=== PATIENT | male | born 1955 | race Two or more races ===

== ENCOUNTER 2018-08-19 11:48 | Inpatient (IN) | payer OTHER ==
[~2018-08-19] VITALS: Ht 167.6 cm; Wt 81.6 kg
--- NOTE | 2018-08-19 11:57 | NUR ---
ED Nurse Note: Pt JUSTICE from [facility] due to fever 103.3F @ 1000 at facility. Addendum: 08/19/18 at 1212 by [facility] ED Nurse Note: Pt JUSTICE from [facility], sent by Dr. Boucher due to fever 103.3F @ 1000 at facility. 103.0F rectally at [facility] checked by RN. Pt also c/o chronic abdominal pain 10/19 jordon. AOx4, VSS. Will cont to monitor.
[2018-08-19 12:08] VITALS: BP 125/79
[2018-08-19] MEDS ORDERED: Cefepime HCl 2 GM in NS 110 ML IV SCH (13:30)
[2018-08-19] MEDS ORDERED: HYDROcodone/Acetamin 5/325 tab ORAL ONE ×2 (14:00→14:30)
[2018-08-19 14:06] LABS: APPEARANCE,URINE CLEAR; BILIRUBIN, URINE 1+ (NEGATIVE); GLUCOSE, URINE (UA) NEGATIVE (NEGATIVE); KETONES,URINE 3+ (NEGATIVE); LEUKOCYTE ESTERASE ,URINE 2+ (NEGATIVE); NITRITE,URINE NEGATIVE (NEGATIVE); PH,URINE 7 (4.5-8.0); PROTEIN,URINE 1+ (NEGATIVE); UROBILINOGEN,URINE 8 MG/DL (0.0-1.0)
[2018-08-19 14:15] LABS: BASOPHILS % (AUTO) 0.3 % (0.0-2.0); EOSINOPHILS % (AUTO) 0.1 % (0.0-3.0); HEMATOCRIT 51.2 % (42.0-52.0); HEMOGLOBIN 17.3 G/DL (14.2-18.0); LYMPHOCYTES % (AUTO) 13.7 % (20.0-45.0); MEAN CORPUSCULAR VOLUME 91 FL (80-99); MONOCYTES % (AUTO) 6.4 % (1.0-10.0); NEUTROPHILS % (AUTO) 79.6 % (45.0-75.0); PLATELET COUNT 339 K/UL (150-450); RED BLOOD COUNT 5.64 M/UL (4.70-6.10); RED CELL DISTRIBUTION WIDTH 12.7 % (11.6-14.8); WHITE BLOOD COUNT 9.7 K/UL (4.8-10.8)
[2018-08-19 14:18] LABS: COLOR,URINE YELLOW
[2018-08-19 14:27] LABS: ANION GAP 11 mmol/L (5-15); BLOOD UREA NITROGEN 10 mg/dL (7-18); CALCIUM 9.8 MG/DL (8.5-10.1); CARBON DIOXIDE 25 MMOL/L (21-32); CHLORIDE 98 MMOL/L (98-107); CREATININE 0.7 MG/DL (0.55-1.30); POTASSIUM 4.1 MMOL/L (3.5-5.1); SODIUM 134 MMOL/L (136-145)
[2018-08-19 14:40] LABS: ALANINE AMINOTRANSFERASE 47 U/L (12-78); ALBUMIN/GLOBULIN RATIO 0.8 (1.0-2.7); ALKALINE PHOSPHATASE 50 U/L (46-116); ASPARTATE AMINO TRANSFERASE 39 U/L (15-37); BILIRUBIN,TOTAL 1.4 MG/DL (0.2-1.0); CKMB 1.6 NG/ML (0.0-3.6); CREATINE KINASE 866 U/L (26-308)
[2018-08-19 14:42] LABS: BILIRUBIN,DIRECT 0.5 MG/DL (0.0-0.3)
[2018-08-19] MEDS ORDERED: Albuterol/Ipratropium 3ml neb HHN PRN (15:45)
[2018-08-19] MEDS ORDERED: Nitroglycerin Subl 0.4mg tab SL PRN (15:45)
[2018-08-19] MEDS ORDERED: Miralax 17gm pkt ORAL PRN (15:45)
--- NOTE | 2018-08-19 15:48 | NUR ---
ED Nurse Note: provided sandwich and juice for the patient. textile technologist to help patient eat. Dr. Jossue jesus with the pt eating.
[2018-08-19] MEDS ORDERED: NORCO 5-325 TA1 EACH ORAL ×2 (15:58→18:12)
[2018-08-19] MEDS ORDERED: METFORMIN HCL1000 M1 ORAL (15:58)
[2018-08-19] MEDS ORDERED: DEPAKOTE125 MG PO (15:58)
[2018-08-19] MEDS ORDERED: RISPERDAL0.5 MG ORAL (15:58)
[2018-08-19] MEDS ORDERED: KLONOPIN2 MG PO (15:58)
[2018-08-19 18:10] VITALS: BP 100/60
--- NOTE | 2018-08-19 18:10 | NUR ---
ED Nurse Note: provided another sandwich for the patient, patient is resting comfortably in bed
[2018-08-19] MEDS ORDERED: MILK OF MA400 MG/51 ORAL (18:12)
[2018-08-19] MEDS ORDERED: KLONOPIN1 MG ORAL (18:12)
[2018-08-19] MEDS ORDERED: FISH OIL 1,0001 EAC1 ORAL (18:12)
[2018-08-19] MEDS ORDERED: MIRALAX17 G2 ORAL (18:12)
[2018-08-19] MEDS ORDERED: DEPAKOTE250 MG PO (18:12)
[2018-08-19] MEDS ORDERED: MULTIVITAMINS1 EAC2 ORAL (18:12)
[2018-08-19] MEDS ORDERED: ACETAMINOPHEN325 M1 ORAL (18:12)
[2018-08-19] MEDS ORDERED: SENNO8.6 MG ORAL (18:12)
[2018-08-19] MEDS ORDERED: BACLOFEN10 MG ORAL (18:16)
[2018-08-19] MEDS ORDERED: LANTUS SOL100 UNIT/1 SUBQ (18:16)
[2018-08-19] MEDS ORDERED: LOPID600 MG ORAL (18:16)
[2018-08-19] MEDS ORDERED: LACTULOSE20 GM/301 ORAL (18:17)
[2018-08-19] MEDS ORDERED: DOCUSATE SODIU100 MG ORAL (18:17)
--- NOTE | 2018-08-19 19:24 | NUR ---
HAND-OFF: Report given to Argelia beth.
[2018-08-19 19:45] VITALS: BP 98/59
[2018-08-19 20:06] VITALS: BP 102/64
--- NOTE | 2018-08-19 20:06 | NUR ---
ER Nurse Note: Report given to RADHA Lorenzo in tele for continuity of care. Pt a&ox4, VSS, no signs of distress. All belongings taken with pt.
[2018-08-19 20:35] VITALS: BP 144/80
--- NOTE | 2018-08-19 20:35 | NUR ---
NURSE NOTES: Pt arrived to floor accompanied by RN and haulage boss, connected to cardiac care unit nurse. Pt A/Ox4, cardiac care unit nurse shows SR. Currently on 2L NC, O2 saturation @ 100 %. Showing no signs of acute respiratory or cardiac distress. Pt has a R thumb 24g and a R forearm 22g peripheral IV. Both patent and asymptomatic. Pt uses urinal at beside. No skin breakdown noted aside from old scarring around sacral area. Bed in lowest position, bed alarms placed. Will continue to monitor and with patients plan of care.
[2018-08-19] MEDS: Morphine Sulfate 2mg/ml Inj(IV/IM USE ONLY) IVP PRN (21:16)
[2018-08-19] MEDS: Heparin 5000 units/ml inj SUBQ SCH (21:26)
[2018-08-19] MEDS: Cefepime HCl 2 GM in D5W 110 ML IV SCH (21:27)
[2018-08-19] MEDS: Vancomycin 1.25gm Premix IVPB SCH (22:39)
[2018-08-20] VITALS: BP 122/70
[2018-08-20] MEDS ORDERED: Vancomycin 1 GM in D5W 275 ML IV SCH (00:30)
[2018-08-20 04:00] VITALS: BP 105/60
[2018-08-20] MEDS: Morphine Sulfate 2mg/ml Inj(IV/IM USE ONLY) IVP PRN ×3 (05:43→18:18)
[2018-08-20 06:09] LABS: EOSINOPHILS % (AUTO) 0.2 % (0.0-3.0); HEMATOCRIT 36.7 % (42.0-52.0); HEMOGLOBIN 12.7 G/DL (14.2-18.0); LYMPHOCYTES % (AUTO) 20.8 % (20.0-45.0); MEAN CORPUSCULAR VOLUME 90 FL (80-99); MONOCYTES % (AUTO) 9.8 % (1.0-10.0); NEUTROPHILS % (AUTO) 68.2 % (45.0-75.0); PLATELET COUNT 293 K/UL (150-450); RED BLOOD COUNT 4.07 M/UL (4.70-6.10); RED CELL DISTRIBUTION WIDTH 12.7 % (11.6-14.8); WHITE BLOOD COUNT 6.3 K/UL (4.8-10.8)
[2018-08-20 06:50] LABS: ALANINE AMINOTRANSFERASE 36 U/L (12-78); ALBUMIN 2.8 G/DL (3.4-5.0); ALBUMIN/GLOBULIN RATIO 0.8 (1.0-2.7); ALKALINE PHOSPHATASE 35 U/L (46-116); ANION GAP 8 mmol/L (5-15); ASPARTATE AMINO TRANSFERASE 28 U/L (15-37); BLOOD UREA NITROGEN 11 mg/dL (7-18); CALCIUM 8.5 MG/DL (8.5-10.1); CARBON DIOXIDE 27 MMOL/L (21-32); CHLORIDE 101 MMOL/L (98-107); CREATININE 0.5 MG/DL (0.55-1.30); POTASSIUM 3.5 MMOL/L (3.5-5.1); SODIUM 136 MMOL/L (136-145)
[2018-08-20 08:00] VITALS: BP 106/61
--- NOTE | 2018-08-20 08:00 | NUR ---
NURSE NOTES: received pt in the bed, awake, alert, oriented, vital signs stable, no co pain, no SOB, skin warm and dry to touch, intact, pt NPO, use urinal, yellow urine, Heplock on RT forearm, patten, bed in low position, call light within reach.
[2018-08-20] MEDS: Cefepime HCl 2 GM in D5W 110 ML IV SCH ×2 (08:25→20:46)
[2018-08-20] MEDS: Heparin 5000 units/ml inj SUBQ SCH ×2 (08:27→20:48)
[2018-08-20] MEDS: Vancomycin 1.25gm Premix IVPB SCH ×2 (10:23→22:07)
--- NOTE | 2018-08-20 10:37 | NUR ---
RENAL DIALYSIS TECHNICIANCOMPLIANCE NURSE 63 Y/O MALE BIBA FROM [facility] TO [facility] ER CC:FEVER SI:SEPSIS, QUADRIPLEGIA VS: BP 158/110, P 90, T 99.8, RR 15, SpO2 98 on 3.0 NC Na 134, Total Bilirubin 1.4, CR 0.5, Urine Protein 1+, Urine WBC 5-10 IS:Metronidazole IV Cefepime IV Ibuprofen PO Hydrocodone Bitart PO Morphine Sulfate IVP SDU STATUS DC TO [facility]
--- NOTE | 2018-08-20 11:05 | NUR ---
*-* INSURANCE *-* ALL CLINICALS AND REVIEWS FAXED TO: DASHA/EHSAN NO JAVA SWING DEVELOPER ASSIGNED AT THIS TIME PLEASE FAX THE REVIEW/CLINICAL. P- [phone] F- [phone]
--- NOTE | 2018-08-20 11:33 | Diagnostic Imaging Report ---
Indication: Shortness of breath Technique: One view of the chest Comparison: none Findings: Patient is rotated to the left. The lungs and pleural spaces are clear. The heart size is upper limits of normal Impression: No acute process
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
--- NOTE | 2018-08-20 11:44 | Diagnostic Imaging Report ---
Indication: Shortness of breath Technique: One view of the chest Comparison: 08/19/2017 Findings: Nodular opacity projects in the left lung base, not evident previously, likely a small focus of atelectasis. Linear atelectasis projects at the right lung base. The lungs and pleural spaces otherwise clear. The heart is borderline enlarged. Impression: Basilar atelectatic changes Borderline cardiomegaly No acute process
[2018-08-20] MEDS ORDERED: Dextrose 50% 25ml Syringe IV PRN (11:45)
[2018-08-20 12:00] VITALS: BP 113/65
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
[2018-08-20 16:00] VITALS: BP 109/68
--- NOTE | 2018-08-20 16:48 | Cardiac Electrophysiology PN ---
Subjective Subjective [id number] Objective Last 24 Hour Vital Signs Date Time Temp Pulse Resp B/P (MAP) Pulse Ox O2 Delivery O2 Flow Rate FiO2 08/20/18 15:17 98.2 08/20/18 12:16 98.2 08/20/18 12:00 98.0 56 22 113/65 (81) 98 08/20/18 12:00 52 08/20/18 09:00 Nasal Cannula 2.0 08/20/18 08:00 98.2 61 22 106/61 (76) 99 08/20/18 08:00 60 08/20/18 04:00 67 08/20/18 04:00 98.9 67 22 105/60 (75) 99 08/20/18 00:00 64 08/20/18 00:00 99.5 60 16 122/70 (87) 100 08/19/18 21:48 Nasal Cannula 2.0 08/19/18 21:46 Nasal Cannula 2.0 08/19/18 20:35 98.2 76 16 144/80 (101) 100 08/19/18 20:06 98.6 89 17 102/64 98 Nasal Cannula 2.0 08/19/18 20:06 98.6 72 17 102/64 98 Nasal Cannula 2.0 08/19/18 19:45 98.7 76 17 98/59 99 Nasal Cannula 2.0 08/19/18 18:10 99.3 72 19 100/60 98 Nasal Cannula 2.0 Intake and Output 08/19/18 08/20/18 19:00 07:00 Intake Total 1435.000 ml Output Total 200 ml Balance 1235.000 ml Intake IV Total 1435.000 ml Output Urine Total 200 ml Laboratory Tests Test 08/20/18 05:10 White Blood Count 6.3 K/UL (4.8-10.8) Red Blood Count 4.07 M/UL (4.70-6.10) L Hemoglobin 12.7 G/DL (14.2-18.0) L Hematocrit 36.7 % (42.0-52.0) L Mean Corpuscular Volume 90 FL (80-99) Mean Corpuscular Hemoglobin 31.1 PG (27.0-31.0) H Mean Corpuscular Hemoglobin Concent 34.5 G/DL (32.0-36.0) Red Cell Distribution Width 12.7 % (11.6-14.8) Platelet Count 293 K/UL (150-450) Mean Platelet Volume 4.8 FL (6.5-10.1) L Neutrophils (%) (Auto) 68.2 % (45.0-75.0) Lymphocytes (%) (Auto) 20.8 % (20.0-45.0) Monocytes (%) (Auto) 9.8 % (1.0-10.0) Eosinophils (%) (Auto) 0.2 % (0.0-3.0) Basophils (%) (Auto) 1.0 % (0.0-2.0) Sodium Level 136 MMOL/L (136-145) Potassium Level 3.5 MMOL/L (3.5-5.1) Chloride Level 101 MMOL/L (98-107) Carbon Dioxide Level 27 MMOL/L (21-32) Anion Gap 8 mmol/L (5-15) Blood Urea Nitrogen 11 mg/dL (7-18) Creatinine 0.5 MG/DL (0.55-1.30) L Estimat Glomerular Filtration Rate > 60 mL/min (>60) Glucose Level 110 MG/DL (74-106) H Calcium Level 8.5 MG/DL (8.5-10.1) Total Bilirubin 1.0 MG/DL (0.2-1.0) Aspartate Amino Transf (AST/SGOT) 28 U/L (15-37) Alanine Aminotransferase (ALT/SGPT) 36 U/L (12-78) Alkaline Phosphatase 35 U/L (46-116) L Total Protein 6.5 G/DL (6.4-8.2) Albumin 2.8 G/DL (3.4-5.0) L Globulin 3.7 g/dL Albumin/Globulin Ratio 0.8 (1.0-2.7) L Microbiology Date/Time Source Procedure Growth Status 08/19/18 13:42 Nasal Nares Influenza Types A,B Antigen ([facility]) - Final Complete Sky Post MD Aug 20, 2018 16:48
--- NOTE | 2018-08-20 17:00 | NUR ---
NURSE NOTES: HR down to 48, pt not co chest pain, dr. Post saw pt, continue monitoring.
[2018-08-20] MEDS: NovoLOG Insulin Flexpen SUBQ SCH ×2 (17:52→20:47)
--- NOTE | 2018-08-20 18:47 | History and Physical Report ---
DATE OF ADMISSION: 08/19/2018 DATE AND TIME SEEN: 08/20/2018, 12 noon. CONSULTANTS: 1. Josesito Demarco M.D. 2. Anshul Nassar M.D. 3. Sky Post M.D. 4. Clarke Lindquist M.D. 5. Amarilis Rowland M.D. CHIEF COMPLAINT: Fever, UTI, quadriplegia, bipolar, elevated troponin. BRIEF HISTORY: This is a 63-year-old male from [facility], presented with increased fever, weakness, brought to [facility] diagnosed with fever, UTI, elevated troponin, and admitted to [facility] for further care. Currently, calm in bed, O2 NC, slight short of breath. No complaint. REVIEW OF SYSTEMS: No chest pain. Slight short of breath. No nausea, vomiting, diarrhea. PAST MEDICAL HISTORY: Includes quadriplegia, diabetes. PAST SURGICAL HISTORY: Spinal cord surgery. ALLERGIES: Denies. SOCIAL HISTORY: No smoking. No alcohol. No intravenous drug abuse. Positive marijuana. PHYSICAL EXAMINATION: GENERAL: Calm in bed, oriented x3, in no acute distress. VITAL SIGNS: Temperature is 98 degrees, pulse 61, respirations 22, blood pressure 106/61. CARDIOVASCULAR: No murmurs. LUNGS: Distant and clear. ABDOMEN: Bowel sounds positive. Nontender. Nondistended. EXTREMITIES: No cyanosis or edema. NEUROLOGIC: Flaccid below waist. Moves right hand. Left hand slightly weak. LABORATORY AND DIAGNOSTIC DATA: Labs at this time show hemoglobin and hematocrit 12/36, otherwise CBC is normal. BMP shows creatinine 0.5, glucose 110. ALT 35. Troponin 0.105. Albumin 2.8. Urinalysis show 2+ leukocyte esterase. MEDICATIONS: Include baclofen, clonazepam, insulin, divalproex, vancomycin, cefepime, heparin, albuterol, Tylenol morphine, Zofran. ASSESSMENT: 1. Fever. 2. UTI. 3. Quadriplegia. 4. Elevated troponin. 5. Bipolar. 6. Diabetes. 7. Malnutrition. PLAN: 1. Antibiotic per Infectious Disease. 2. Blood pressure, blood sugar, pain control. 3. Troponin q.8 h. x3. 4. EKG in a.m. 5. Cardiology followup. 6. Dietary eval. 7. PT eval. 8. CBC, BMP in the morning. Salty Boucher D.O. DR: TONY JOB#: [id number] CC:
--- NOTE | 2018-08-20 19:13 | NUR ---
HAND-OFF: Report given to CECE GARCIA.
--- NOTE | 2018-08-20 19:14 | NUR ---
NURSE NOTES: Report received from Gricel Tolliver RN. Pt A/Ox4, shelter monitor shows SR. Currently on 2L NC, O2 saturation @ 100 %. Showing no signs of acute respiratory or cardiac distress. Pt has a R forearm 22g peripheral IV. Both patent and asymptomatic. Pt uses urinal at beside. No skin breakdown noted aside from old scarring around sacral area. Bed in lowest position, bed alarms placed. Will continue to monitor and with patients plan of care. Awaiting to transfer pt to telemetry unit. Bed unavailable at the moment.
[2018-08-20 20:00] VITALS: BP 100/60
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
[2018-08-21] VITALS: BP 100/60
[2018-08-21 04:00] VITALS: BP 107/62
[2018-08-21 04:45] LABS: BASOPHILS % (AUTO) 0.7 % (0.0-2.0); HEMATOCRIT 36.4 % (42.0-52.0); HEMOGLOBIN 12.6 G/DL (14.2-18.0); LYMPHOCYTES % (AUTO) 33.6 % (20.0-45.0); MEAN CORPUSCULAR VOLUME 90 FL (80-99); NEUTROPHILS % (AUTO) 48.7 % (45.0-75.0); PLATELET COUNT 293 K/UL (150-450); RED BLOOD COUNT 4.02 M/UL (4.70-6.10); RED CELL DISTRIBUTION WIDTH 12.6 % (11.6-14.8); WHITE BLOOD COUNT 4.1 K/UL (4.8-10.8)
[2018-08-21 05:13] LABS: ANION GAP 12 mmol/L (5-15); BLOOD UREA NITROGEN 10 mg/dL (7-18); CARBON DIOXIDE 26 MMOL/L (21-32); CHLORIDE 104 MMOL/L (98-107); CREATININE 0.4 MG/DL (0.55-1.30); POTASSIUM 3.8 MMOL/L (3.5-5.1); SODIUM 141 MMOL/L (136-145)
[2018-08-21] MEDS: NovoLOG Insulin Flexpen SUBQ SCH ×4 (05:27→20:36)
[2018-08-21 08:00] VITALS: BP 110/72
--- NOTE | 2018-08-21 08:00 | NUR ---
NURSE NOTES: received pt in the bed, awake, alert, oriented, vital signs stable, no SOB, no co pain, skin warm and dry to touch, paraplegic, use urinal, yellow urine, SB, HR down to 47, dr. Post aware, 2D echo done, bed in low position, call light within reach.
[2018-08-21] MEDS: Cefepime HCl 2 GM in D5W 110 ML IV SCH ×2 (09:09→20:35)
[2018-08-21] MEDS: Heparin 5000 units/ml inj SUBQ SCH ×2 (09:09→20:37)
[2018-08-21] MEDS: Morphine Sulfate 2mg/ml Inj(IV/IM USE ONLY) IVP PRN ×3 (09:10→23:15)
--- NOTE | 2018-08-21 09:25 | Pulmonology Progress Note ---
Assessment/Plan Problems: (1) Sepsis (2) Diabetes mellitus (3) Schizoaffective disorder, bipolar type (4) Major depression (5) Paraplegia Assessment/Plan afebrile now BC negative so far heart rate of 50's get echo review telemetry dvt prophylaxis pt is doing better. Subjective ROS Limited/Unobtainable: No Constitutional: Reports: no symptoms HEENT: Repors: no symptoms Respiratory: Reports: no symptoms Allergies: Coded Allergies: No Known Allergies (Unverified , 08/19/18) Objective Last 24 Hour Vital Signs Date Time Temp Pulse Resp B/P (MAP) Pulse Ox O2 Delivery O2 Flow Rate FiO2 08/21/18 04:00 50 08/21/18 04:00 98.0 53 20 107/62 (77) 98 08/21/18 02:41 98.0 08/21/18 00:00 52 08/21/18 00:00 97.8 50 20 100/60 (73) 100 08/20/18 20:00 97.5 60 20 100/60 (73) 100 08/20/18 20:00 64 08/20/18 20:00 Nasal Cannula 2.0 08/20/18 18:48 97.9 08/20/18 16:00 97.9 61 21 109/68 (82) 99 08/20/18 16:00 52 08/20/18 12:00 98.0 56 22 113/65 (81) 98 08/20/18 12:00 52 Intake and Output 08/20/18 08/21/18 19:00 07:00 Intake Total 880.000 ml 465.000 ml Output Total 650 ml 250 ml Balance 230.000 ml 215.000 ml Intake Oral 200 ml 80 ml IV Total 680.000 ml 385.000 ml Output Urine Total 650 ml 250 ml General Appearance: WD/WN HEENT: normocephalic, atraumatic Respiratory/Chest: chest wall non-tender, lungs clear Cardiovascular: normal peripheral pulses, normal rate, regular rhythm Abdomen: normal bowel sounds, no organomegaly Extremities: no cyanosis, no clubbing Skin: no lesions Microbiology Date/Time Source Procedure Growth Status 08/19/18 14:07 Blood Blood Culture - Preliminary NO GROWTH AFTER 24 HOURS Resulted 08/19/18 14:01 Blood Blood Culture - Preliminary NO GROWTH AFTER 24 HOURS Resulted 08/19/18 13:42 Nasal Nares Influenza Types A,B Antigen (YURY) - Final Complete Laboratory Tests 08/21/18 03:40: White Blood Count 4.1L, Red Blood Count 4.02L, Hemoglobin 12.6L, Hematocrit 36.4L, Mean Corpuscular Volume 90, Mean Corpuscular Hemoglobin 31.2H, Mean Corpuscular Hemoglobin Concent 34.5, Red Cell Distribution Width 12.6, Platelet Count 293, Mean Platelet Volume 4.9L, Neutrophils (%) (Auto) 48.7, Lymphocytes ( %) (Auto) 33.6, Monocytes (%) (Auto) 15.0H, Eosinophils (%) (Auto) 2.0, Basophils (%) (Auto) 0.7, Sodium Level 141, Potassium Level 3.8, Chloride Level 104, Carbon Dioxide Level 26, Anion Gap 12, Blood Urea Nitrogen 10, Creatinine 0.4L, Estimat Glomerular Filtration Rate > 60, Glucose Level 119H, Calcium Level 9.0, Troponin I 0.013, Pro-B-Type Natriuretic Peptide 430H Current Medications Medications (Trade) Dose Ordered Sig/Alexander Route PRN Reason Start Time Stop Time Status Last Admin Dose Admin Acetaminophen (Tylenol) 650 mg Q4H PRN ORAL fever 08/19/18 15:45 09/18/18 15:44 08/21/18 02:11 Albuterol/ Ipratropium (Albuterol/ Ipratropium) 3 ml Q4H PRN HHN Shortness of Breath 08/19/18 15:45 08/24/18 15:44 Baclofen (Lioresal) 10 mg Q12HR ORAL 08/20/18 21:00 09/19/18 20:59 08/21/18 09:09 Cefepime HCl 2 gm/ Dextrose 110 ml @ 220 mls/hr EVERY 12 HOURS IV 08/19/18 21:00 08/26/18 20:59 08/21/18 09:09 Clonazepam (KlonoPIN) 1 mg Q12HR ORAL 08/20/18 18:00 08/27/18 17:59 08/21/18 09:10 Dextrose (Dextrose 50%) 25 ml Q30M PRN IV Hypoglycemia 08/20/18 11:45 09/19/18 11:41 Dextrose (Dextrose 50%) 50 ml Q30M PRN IV hypoglycemia 08/20/18 11:45 09/19/18 11:44 Divalproex Sodium (Depakote) 250 mg DAILY ORAL 08/20/18 14:00 09/19/18 13:59 08/21/18 09:10 Heparin Sodium (Porcine) (Heparin 5000 units/ml) 5,000 units EVERY 12 HOURS SUBQ 08/19/18 21:00 09/18/18 20:59 08/21/18 09:09 Insulin Aspart (NovoLOG) BEFORE MEALS AND HS SUBQ 08/20/18 16:30 09/19/18 16:29 08/21/18 05:27 Morphine Sulfate (Morphine Sulfate) 2 mg Q4H PRN IVP Moderate Pain (Pain Scale 4-6) 08/19/18 15:45 08/26/18 15:44 08/21/18 09:10 Nitroglycerin (Ntg) 0.4 mg Q5M PRN SL Prn Chest Pain 08/19/18 15:45 09/18/18 15:44 Ondansetron HCl (Zofran) 4 mg Q6H PRN IVP Nausea & Vomiting 08/19/18 15:45 09/18/18 15:44 Polyethylene Glycol (Miralax) 17 gm DAILYPRN PRN ORAL Constipation 08/19/18 15:45 09/18/18 15:44 Temazepam (Restoril) 15 mg HSPRN PRN ORAL Insomnia 08/19/18 15:45 08/26/18 15:44 Vancomycin HCl (Vanco rx to dose) 1 ea DAILY PRN MISC PER RX PROTOCOL 08/19/18 20:15 09/18/18 20:14 Vancomycin HCl/ Dextrose 275 ml @ 183.333 mls/hr Q12HR@1000,2200 IVPB 08/19/18 22:00 08/24/18 21:59 08/20/18 22:07 Josesito Demarco MD Aug 21, 2018 09:25
[2018-08-21] MEDS: Vancomycin 1.25gm Premix IVPB SCH ×2 (10:40→23:04)
--- NOTE | 2018-08-21 11:06 | NUR ---
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
[2018-08-21 12:00] VITALS: BP 103/44
--- NOTE | 2018-08-21 14:11 | NUR ---
NURSE NOTES: no any distress noted, no co pain, repositioned, continue monitoring.
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
--- NOTE | 2018-08-21 14:55 | NUR ---
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 P- [phone] F- [phone]
--- NOTE | 2018-08-21 15:40 | Cardiac Electrophysiology PN ---
Assessment/Plan Assessment/Plan 1. Troponin leak. Repeat troponin is negative. EKG showed sinus rhythm with right bundle-branch block. Echocardiogram EF 80%. The patient does not have any chest pain. 2. Fever of 103 and sepsis. The patient is on IV antibiotic. 3. History of cervical spine injury and quadriparesis. 4. Rhabdomyolysis with CK of more than 800. DAMIÁN Gilmore Subjective Subjective No events in NAD Objective Last 24 Hour Vital Signs Date Time Temp Pulse Resp B/P (MAP) Pulse Ox O2 Delivery O2 Flow Rate FiO2 08/21/18 12:00 97.5 64 21 103/44 (63) 97 08/21/18 12:00 64 08/21/18 09:40 98.0 08/21/18 09:00 Nasal Cannula 2.0 08/21/18 08:00 98.0 57 21 110/72 (85) 98 08/21/18 08:00 56 08/21/18 04:00 50 08/21/18 04:00 98.0 53 20 107/62 (77) 98 08/21/18 02:41 98.0 08/21/18 00:00 52 08/21/18 00:00 97.8 50 20 100/60 (73) 100 08/20/18 20:00 97.5 60 20 100/60 (73) 100 08/20/18 20:00 64 08/20/18 20:00 Nasal Cannula 2.0 08/20/18 16:00 97.9 61 21 109/68 (82) 99 08/20/18 16:00 52 Intake and Output 08/20/18 08/21/18 19:00 07:00 Intake Total 880.000 ml 465.000 ml Output Total 650 ml 250 ml Balance 230.000 ml 215.000 ml Intake Oral 200 ml 80 ml IV Total 680.000 ml 385.000 ml Output Urine Total 650 ml 250 ml Laboratory Tests Test 08/21/18 03:40 08/21/18 09:00 White Blood Count 4.1 K/UL (4.8-10.8) L Red Blood Count 4.02 M/UL (4.70-6.10) L Hemoglobin 12.6 G/DL (14.2-18.0) L Hematocrit 36.4 % (42.0-52.0) L Mean Corpuscular Volume 90 FL (80-99) Mean Corpuscular Hemoglobin 31.2 PG (27.0-31.0) H Mean Corpuscular Hemoglobin Concent 34.5 G/DL (32.0-36.0) Red Cell Distribution Width 12.6 % (11.6-14.8) Platelet Count 293 K/UL (150-450) Mean Platelet Volume 4.9 FL (6.5-10.1) L Neutrophils (%) (Auto) 48.7 % (45.0-75.0) Lymphocytes (%) (Auto) 33.6 % (20.0-45.0) Monocytes (%) (Auto) 15.0 % (1.0-10.0) H Eosinophils (%) (Auto) 2.0 % (0.0-3.0) Basophils (%) (Auto) 0.7 % (0.0-2.0) Sodium Level 141 MMOL/L (136-145) Potassium Level 3.8 MMOL/L (3.5-5.1) Chloride Level 104 MMOL/L (98-107) Carbon Dioxide Level 26 MMOL/L (21-32) Anion Gap 12 mmol/L (5-15) Blood Urea Nitrogen 10 mg/dL (7-18) Creatinine 0.4 MG/DL (0.55-1.30) L Estimat Glomerular Filtration Rate > 60 mL/min (>60) Glucose Level 119 MG/DL (74-106) H Calcium Level 9.0 MG/DL (8.5-10.1) Troponin I 0.013 ng/mL (0.000-0.056) Pro-B-Type Natriuretic Peptide 430 pg/mL (0-125) H Vancomycin Level Trough 12.9 ug/mL (5.0-12.0) H Microbiology Date/Time Source Procedure Growth Status 08/19/18 14:07 Blood Blood Culture - Preliminary NO GROWTH AFTER 24 HOURS Resulted 08/19/18 14:01 Blood Blood Culture - Preliminary NO GROWTH AFTER 24 HOURS Resulted 08/19/18 13:42 Nasal Nares Influenza Types A,B Antigen (YURY) - Final Complete Objective HEAD AND NECK: No JVD. LUNGS: Clear. CARDIOVASCULAR: Regular S1 and S2 with no gallop or murmur. ABDOMEN: Soft and nontender. EXTREMITIES: No pitting edema, however, contracted. Sky Post MD Aug 21, 2018 15:40
[2018-08-21 16:00] VITALS: BP 135/69
[2018-08-21] MEDS ORDERED: Tubing IV Secondary IV ONE (16:03)
[2018-08-21] MEDS ORDERED: NS 275ml ONE (16:03)
[2018-08-21] MEDS ORDERED: 1/2 NS 1000ml IV ONE (16:03)
--- NOTE | 2018-08-21 16:17 | General Progress Note ---
Assessment/Plan Problem List: (1) UTI (urinary tract infection) ICD Codes: N39.0 - Urinary tract infection, site not specified SNOMED: 98852837 (2) Paraplegia ICD Codes: G82.20 - Paraplegia, unspecified SNOMED: 95676395 (3) Sepsis ICD Codes: A41.9 - Sepsis, unspecified organism SNOMED: 37530861 (4) Fever ICD Codes: R50.9 - Fever, unspecified SNOMED: 368647989 (5) Diabetes mellitus ICD Codes: E11.9 - Type 2 diabetes mellitus without complications SNOMED: 51591836 Status: unchanged Assessment/Plan pt diet abx cbc bmp am Subjective Constitutional: Reports: weakness Allergies: Coded Allergies: No Known Allergies (Unverified , 08/19/18) All Systems: reviewed and negative except above Subjective sleepy in bed calm Objective Last 24 Hour Vital Signs Date Time Temp Pulse Resp B/P (MAP) Pulse Ox O2 Delivery O2 Flow Rate FiO2 08/21/18 12:00 97.5 64 21 103/44 (63) 97 08/21/18 12:00 64 08/21/18 09:40 98.0 08/21/18 09:00 Nasal Cannula 2.0 08/21/18 08:00 98.0 57 21 110/72 (85) 98 08/21/18 08:00 56 08/21/18 04:00 50 08/21/18 04:00 98.0 53 20 107/62 (77) 98 08/21/18 02:41 98.0 08/21/18 00:00 52 08/21/18 00:00 97.8 50 20 100/60 (73) 100 08/20/18 20:00 97.5 60 20 100/60 (73) 100 08/20/18 20:00 64 08/20/18 20:00 Nasal Cannula 2.0 Intake and Output 08/20/18 08/21/18 19:00 07:00 Intake Total 880.000 ml 465.000 ml Output Total 650 ml 250 ml Balance 230.000 ml 215.000 ml Intake Oral 200 ml 80 ml IV Total 680.000 ml 385.000 ml Output Urine Total 650 ml 250 ml Laboratory Tests 08/21/18 03:40: White Blood Count 4.1L, Red Blood Count 4.02L, Hemoglobin 12.6L, Hematocrit 36.4L, Mean Corpuscular Volume 90, Mean Corpuscular Hemoglobin 31.2H, Mean Corpuscular Hemoglobin Concent 34.5, Red Cell Distribution Width 12.6, Platelet Count 293, Mean Platelet Volume 4.9L, Neutrophils (%) (Auto) 48.7, Lymphocytes ( %) (Auto) 33.6, Monocytes (%) (Auto) 15.0H, Eosinophils (%) (Auto) 2.0, Basophils (%) (Auto) 0.7, Sodium Level 141, Potassium Level 3.8, Chloride Level 104, Carbon Dioxide Level 26, Anion Gap 12, Blood Urea Nitrogen 10, Creatinine 0.4L, Estimat Glomerular Filtration Rate > 60, Glucose Level 119H, Calcium Level 9.0, Troponin I 0.013, Pro-B-Type Natriuretic Peptide 430H 08/21/18 09:00: Vancomycin Level Trough 12.9H Height (Feet): 5 Height (Inches): 6.00 Weight (Pounds): 170 General Appearance: lethargic EENT: normal ENT inspection Neck: normal alignment Cardiovascular: normal peripheral pulses, normal rate, regular rhythm Respiratory/Chest: chest wall non-tender, lungs clear, normal breath sounds Abdomen: normal bowel sounds, non tender, soft Extremities: normal inspection Edema: no edema noted Arm (L), no edema noted Arm (R), no edema noted Leg (L), no edema noted Leg (R), no edema noted Pedal (L), no edema noted Pedal (R), no edema noted Generalized Neurologic: motor weakness Skin: normal pigmentation Salty Boucher DO Aug 21, 2018 16:17
--- NOTE | 2018-08-21 16:49 | Cardiology Report ---
APPROVED REPORT EXAM: Two-dimensional and M-mode echocardiogram with Doppler and color Doppler. INDICATION CAD M-Mode DIMENSIONS IVSd1.0 (0.7-1.1cm)Left Atrium (MM)4.1 (1.6-4.0cm) LVDd4.7 (3.5-5.6cm)Aortic Root3.1 (2.0-3.7cm) PWd1.3 (0.7-1.1cm)Aortic Cusp Exc.2.0 (1.5-2.0cm) LVDs3.2 (2.5-4.0cm) PWs1.2 cm Normal left ventricular chamber size, systolic function and wall motion except hypokiesis of mid to distal lseptum Left ventricular ejection fraction estimated to be 60 %. Borderline mild left ventricular hypertrophy by 2D. Anterior Echo-free space, may be due to pericardial fat or effusion. Left atrial size at upper limits of normal. Right cardiac chamber sizes are within normal limits. Focal aortic valve sclerosis with adequate cusp excursion. Thickened mitral valve leaflets with normal excursion. Mitral annulus and aortic root calcification. Pulmonic valve not well visualized. Normal tricuspid valve structure. IVC dilated at 1.8 cm with slight physiologic collapse A color flow and spectral Doppler study was performed and revealed: No aortic insuffciency. Trace mitral regurgitation. Mitral diastolic velocities suggest moderate diastolic dysfucntion. Trace to mild tricuspid regurgitation. Tricuspid systolic velocities suggests peak right ventricular systolic pressure of 35 mmHg, consistent with borderline mild pulmonary hypertension.
--- NOTE | 2018-08-21 16:58 | Cardiology Report ---
APPROVED REPORT EKG Measurement Heart [id number] Sinus bradycardia Right bundle branch block Abnormal ECG
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
--- NOTE | 2018-08-21 19:06 | NUR ---
HAND-OFF: Report given to CECE RN, NO DISTRESS NOTED, NO CO PAIN.
--- NOTE | 2018-08-21 19:10 | NUR ---
NURSE NOTES: Report received from Gricel Tolliver RN. 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 Currently on 1L NC, O2 saturation @ 100 %. Showing no signs of acute respiratory or cardiac distress. Pt has a R forearm 22g peripheral IV, patent and asymptomatic. Pt uses urinal at beside. No skin breakdown noted aside from old scarring around sacral area. Bed in lowest position, bed alarms placed. Will continue to monitor and with patients plan of care. Awaiting to transfer pt to telemetry unit. Bed unavailable at the moment.
[2018-08-21 20:00] VITALS: BP 131/77
[2018-08-22] VITALS: BP 150/59
[2018-08-22 04:00] VITALS: BP 106/58
[2018-08-22] MEDS: Morphine Sulfate 2mg/ml Inj(IV/IM USE ONLY) IVP PRN ×3 (05:42→20:42)
[2018-08-22] MEDS: NovoLOG Insulin Flexpen SUBQ SCH ×4 (05:43→20:48)
--- NOTE | 2018-08-22 07:07 | NUR ---
NURSE NOTES: Received patient from Brooks Coe RN. Patient in bed and awake. In room air. In no respiratory distress. potline monitor and condom catheter in placed. Bed in lowest position with side rails up. Will continue to monitor.
[2018-08-22 07:58] LABS: BASOPHILS % (AUTO) 1.6 % (0.0-2.0); EOSINOPHILS % (AUTO) 2.7 % (0.0-3.0); HEMATOCRIT 36.6 % (42.0-52.0); HEMOGLOBIN 12.7 G/DL (14.2-18.0); LYMPHOCYTES % (AUTO) 44.1 % (20.0-45.0); MEAN CORPUSCULAR VOLUME 90 FL (80-99); MONOCYTES % (AUTO) 8.5 % (1.0-10.0); NEUTROPHILS % (AUTO) 43.1 % (45.0-75.0); PLATELET COUNT 305 K/UL (150-450); RED BLOOD COUNT 4.06 M/UL (4.70-6.10); RED CELL DISTRIBUTION WIDTH 11.8 % (11.6-14.8); WHITE BLOOD COUNT 4.5 K/UL (4.8-10.8)
[2018-08-22 08:00] VITALS: BP 119/67
[2018-08-22 08:02] LABS: ALANINE AMINOTRANSFERASE 43 U/L (12-78); ALBUMIN 2.9 G/DL (3.4-5.0); ALBUMIN/GLOBULIN RATIO 0.8 (1.0-2.7); ALKALINE PHOSPHATASE 35 U/L (46-116); ANION GAP 7 mmol/L (5-15); ASPARTATE AMINO TRANSFERASE 32 U/L (15-37); BILIRUBIN,TOTAL 0.7 MG/DL (0.2-1.0); BLOOD UREA NITROGEN 7 mg/dL (7-18); CALCIUM 9.1 MG/DL (8.5-10.1); CARBON DIOXIDE 28 MMOL/L (21-32); CHLORIDE 106 MMOL/L (98-107); CREATININE 0.5 MG/DL (0.55-1.30); PHOSPHORUS 2.7 MG/DL (2.5-4.9); POTASSIUM 3.3 MMOL/L (3.5-5.1); SODIUM 141 MMOL/L (136-145)
[2018-08-22] MEDS: Cefepime HCl 2 GM in D5W 110 ML IV SCH ×2 (08:20→20:43)
[2018-08-22] MEDS: Heparin 5000 units/ml inj SUBQ SCH ×2 (08:22→20:44)
[2018-08-22] MEDS: Vancomycin 1.25gm Premix IVPB SCH ×2 (09:38→23:21)
--- NOTE | 2018-08-22 10:20 | Pulmonology Progress Note ---
Assessment/Plan Problems: (1) Sepsis (2) Diabetes mellitus (3) Schizoaffective disorder, bipolar type (4) Major depression (5) Paraplegia Assessment/Plan afebrile now BC negative so far heart rate of 50's get echo review telemetry dvt prophylaxis pt is doing better. Subjective ROS Limited/Unobtainable: No Interval Events: doing physician therapy Constitutional: Reports: no symptoms Allergies: Coded Allergies: No Known Allergies (Unverified , 08/19/18) Objective Last 24 Hour Vital Signs Date Time Temp Pulse Resp B/P (MAP) Pulse Ox O2 Delivery O2 Flow Rate FiO2 08/22/18 09:00 Room Air 08/22/18 08:00 97.7 65 20 119/67 (84) 94 08/22/18 06:12 98.0 08/22/18 04:00 51 08/22/18 04:00 97.8 50 20 106/58 (74) 95 08/22/18 00:00 51 08/22/18 00:00 98.0 50 20 150/59 (89) 96 08/21/18 21:05 97.5 08/21/18 21:00 Nasal Cannula 1.0 08/21/18 20:00 98.4 58 20 131/77 (95) 97 08/21/18 20:00 55 08/21/18 16:00 98.1 96 16 135/69 (91) 97 08/21/18 16:00 55 08/21/18 12:00 97.5 64 21 103/44 (63) 97 08/21/18 12:00 64 Intake and Output 08/21/18 08/22/18 18:59 06:59 Intake Total 985.000 ml 350 ml Output Total 1150 ml 1250 ml Balance -165.000 ml -900 ml Intake Oral 600 ml 240 ml IV Total 385.000 ml 110 ml Output Urine Total 1150 ml 1250 ml General Appearance: WD/WN HEENT: normocephalic Respiratory/Chest: chest wall non-tender, lungs clear Cardiovascular: normal peripheral pulses, normal rate Abdomen: normal bowel sounds, no organomegaly Genitourinary: normal external genitalia Skin: no rash 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, no motor/sensory deficits Microbiology Date/Time Source Procedure Growth Status 08/19/18 14:07 Blood Blood Culture - Preliminary NO GROWTH AFTER 48 HOURS Resulted 08/19/18 14:01 Blood Blood Culture - Preliminary NO GROWTH AFTER 48 HOURS Resulted 08/19/18 13:42 Nasal Nares Influenza Types A,B Antigen (YURY) - Final Complete Laboratory Tests 08/22/18 06:37: White Blood Count 4.5L, Red Blood Count 4.06L, Hemoglobin 12.7L, Hematocrit 36.6L, Mean Corpuscular Volume 90, Mean Corpuscular Hemoglobin 31.3H, Mean Corpuscular Hemoglobin Concent 34.8, Red Cell Distribution Width 11.8, Platelet Count 305, Mean Platelet Volume 4.4L, Neutrophils (%) (Auto) 43.1L, Lymphocytes (%) (Auto) 44.1, Monocytes (%) (Auto) 8.5, Eosinophils (%) (Auto) 2.7, Basophils (%) (Auto) 1.6, Sodium Level 141, Potassium Level 3.3L, Chloride Level 106, Carbon Dioxide Level 28, Anion Gap 7, Blood Urea Nitrogen 7, Creatinine 0.5L, Estimat Glomerular Filtration Rate > 60, Glucose Level 114H, Calcium Level 9.1, Phosphorus Level 2.7, Magnesium Level 1.8, Total Bilirubin 0.7, Aspartate Amino Transf (AST/SGOT) 32, Alanine Aminotransferase (ALT/SGPT) 43, Alkaline Phosphatase 35L, Total Protein 6.7, Albumin 2.9L, Globulin 3.8, Albumin/Globulin Ratio 0.8L Current Medications Medications (Trade) Dose Ordered Sig/Alexander Route PRN Reason Start Time Stop Time Status Last Admin Dose Admin Acetaminophen (Tylenol) 650 mg Q4H PRN ORAL fever 08/19/18 15:45 09/18/18 15:44 08/22/18 09:27 Albuterol/ Ipratropium (Albuterol/ Ipratropium) 3 ml Q4H PRN HHN Shortness of Breath 08/19/18 15:45 08/24/18 15:44 Baclofen (Lioresal) 10 mg Q12HR ORAL 08/20/18 21:00 09/19/18 20:59 08/22/18 08:20 Cefepime HCl 2 gm/ Dextrose 110 ml @ 220 mls/hr EVERY 12 HOURS IV 08/19/18 21:00 08/26/18 20:59 08/22/18 08:20 Clonazepam (KlonoPIN) 1 mg Q12HR ORAL 08/20/18 18:00 08/27/18 17:59 08/22/18 08:20 Dextrose (Dextrose 50%) 25 ml Q30M PRN IV Hypoglycemia 08/20/18 11:45 09/19/18 11:41 Dextrose (Dextrose 50%) 50 ml Q30M PRN IV hypoglycemia 08/20/18 11:45 09/19/18 11:44 Divalproex Sodium (Depakote) 250 mg DAILY ORAL 08/20/18 14:00 09/19/18 13:59 08/22/18 08:20 Heparin Sodium (Porcine) (Heparin 5000 units/ml) 5,000 units EVERY 12 HOURS SUBQ 08/19/18 21:00 09/18/18 20:59 08/22/18 08:22 Insulin Aspart (NovoLOG) BEFORE MEALS AND HS SUBQ 08/20/18 16:30 09/19/18 16:29 08/22/18 05:43 Morphine Sulfate (Morphine Sulfate) 2 mg Q4H PRN IVP Moderate Pain (Pain Scale 4-6) 08/19/18 15:45 08/26/18 15:44 08/22/18 05:42 Nitroglycerin (Ntg) 0.4 mg Q5M PRN SL Prn Chest Pain 08/19/18 15:45 09/18/18 15:44 Ondansetron HCl (Zofran) 4 mg Q6H PRN IVP Nausea & Vomiting 08/19/18 15:45 09/18/18 15:44 Polyethylene Glycol (Miralax) 17 gm DAILYPRN PRN ORAL Constipation 08/19/18 15:45 09/18/18 15:44 Temazepam (Restoril) 15 mg HSPRN PRN ORAL Insomnia 08/19/18 15:45 08/26/18 15:44 Vancomycin HCl (Vanco rx to dose) 1 ea DAILY PRN MISC PER RX PROTOCOL 08/19/18 20:15 09/18/18 20:14 Vancomycin HCl/ Dextrose 275 ml @ 183.333 mls/hr Q12HR@1000,2200 IVPB 08/19/18 22:00 08/24/18 21:59 08/22/18 09:38 Josesito Demarco MD Aug 22, 2018 10:20
[2018-08-22] MEDS ORDERED: CEPHALEXIN500 MG ORAL (10:26)
[2018-08-22] MEDS ORDERED: Sodium Chloride for KCL Premix X 4hrs IV SCH (11:00)
--- NOTE | 2018-08-22 11:50 | NUR ---
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 Trace mitral regurgitation. Mitral diastolic velocities suggest moderate diastolic dysfucntion. Trace to mild tricuspid regurgitation. Tricuspid systolic velocities suggests peak right ventricular systolic pressure of 35 mmHg, consistent with borderline mild pulmonary hypertension. IS:BACLOFEN 10mg CLONAZEPAM 1mg NOVOLOG SUBQ DEPAKOTE 250 mg VANCOMYCIN 275 ml CEFEPIME HCI 110ml HEPARIN SUBQ TYLENOL 650mg MORPHINE 2mg POTASSIUM CHLORIDE 100ml NS 400 ml SDU STATUS
[2018-08-22 12:00] VITALS: BP 109/72
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
--- NOTE | 2018-08-22 14:46 | General Progress Note ---
Assessment/Plan Problem List: (1) UTI (urinary tract infection) ICD Codes: N39.0 - Urinary tract infection, site not specified SNOMED: 32345719 (2) Paraplegia ICD Codes: G82.20 - Paraplegia, unspecified SNOMED: 92301419 (3) Sepsis ICD Codes: A41.9 - Sepsis, unspecified organism SNOMED: 07960256 (4) Fever ICD Codes: R50.9 - Fever, unspecified SNOMED: 766352038 (5) Diabetes mellitus ICD Codes: E11.9 - Type 2 diabetes mellitus without complications SNOMED: 95965690 Status: stable, progressing Assessment/Plan pt diet abx cbc bmp am dc plan Subjective Constitutional: Reports: weakness Allergies: Coded Allergies: No Known Allergies (Unverified , 08/19/18) All Systems: reviewed and negative except above Subjective sleepy in bed calm Objective Last 24 Hour Vital Signs Date Time Temp Pulse Resp B/P (MAP) Pulse Ox O2 Delivery O2 Flow Rate FiO2 08/22/18 12:00 97.3 49 20 109/72 (84) 95 08/22/18 09:00 Room Air 08/22/18 08:00 58 08/22/18 08:00 97.7 65 20 119/67 (84) 94 08/22/18 06:12 98.0 08/22/18 04:00 51 08/22/18 04:00 97.8 50 20 106/58 (74) 95 08/22/18 00:00 51 08/22/18 00:00 98.0 50 20 150/59 (89) 96 08/21/18 21:05 97.5 08/21/18 21:00 Nasal Cannula 1.0 08/21/18 20:00 98.4 58 20 131/77 (95) 97 08/21/18 20:00 55 08/21/18 16:00 98.1 96 16 135/69 (91) 97 08/21/18 16:00 55 Intake and Output 08/21/18 08/22/18 18:59 06:59 Intake Total 985.000 ml 350 ml Output Total 1150 ml 1250 ml Balance -165.000 ml -900 ml Intake Oral 600 ml 240 ml IV Total 385.000 ml 110 ml Output Urine Total 1150 ml 1250 ml Laboratory Tests 08/22/18 06:37: White Blood Count 4.5L, Red Blood Count 4.06L, Hemoglobin 12.7L, Hematocrit 36.6L, Mean Corpuscular Volume 90, Mean Corpuscular Hemoglobin 31.3H, Mean Corpuscular Hemoglobin Concent 34.8, Red Cell Distribution Width 11.8, Platelet Count 305, Mean Platelet Volume 4.4L, Neutrophils (%) (Auto) 43.1L, Lymphocytes (%) (Auto) 44.1, Monocytes (%) (Auto) 8.5, Eosinophils (%) (Auto) 2.7, Basophils (%) (Auto) 1.6, Sodium Level 141, Potassium Level 3.3L, Chloride Level 106, Carbon Dioxide Level 28, Anion Gap 7, Blood Urea Nitrogen 7, Creatinine 0.5L, Estimat Glomerular Filtration Rate > 60, Glucose Level 114H, Calcium Level 9.1, Phosphorus Level 2.7, Magnesium Level 1.8, Total Bilirubin 0.7, Aspartate Amino Transf (AST/SGOT) 32, Alanine Aminotransferase (ALT/SGPT) 43, Alkaline Phosphatase 35L, Total Protein 6.7, Albumin 2.9L, Globulin 3.8, Albumin/Globulin Ratio 0.8L Height (Feet): 5 Height (Inches): 6.00 Weight (Pounds): 180 General Appearance: lethargic EENT: normal ENT inspection Neck: normal alignment Cardiovascular: normal peripheral pulses, normal rate, regular rhythm Respiratory/Chest: chest wall non-tender, lungs clear, normal breath sounds Abdomen: normal bowel sounds, non tender, soft Extremities: normal inspection Edema: no edema noted Arm (L), no edema noted Arm (R), no edema noted Leg (L), no edema noted Leg (R), no edema noted Pedal (L), no edema noted Pedal (R), no edema noted Generalized Neurologic: motor weakness Skin: normal pigmentation, warm/dry Salty Boucher DO Aug 22, 2018 14:46
[2018-08-22 16:00] VITALS: BP 108/65
--- NOTE | 2018-08-22 16:29 | NUR ---
P.T NOTE: P.T EVALUATION COMPLETED AND TREATMENT INITIATED. PLEASE REFER TO P.T EVALUATION FOR CURRENT FUNCTIONAL STATUS. PATIENT IS ALERT , O X 4, PLEASANT AND COOPERATIVE. PATIENT PRESENTED RESIDUAL DEFICITS FROM OLD SPINAL CORD INJURY AND GENERAL DECONDITIONING AFFECTING OVERALL FUNCTIONAL MOBILITIES. PATIENT CURRENTLY ABLE TO TURN TOWARDS THE L SIDE USING THE BED RAIL WITH RUE WITH MAX A X 1, ABLE TO PERFORM AND COMPLETE SUPINE TO/FROM SIT TOWARDS THE R SIDE WITH MAX A X 1. PT ABLE TO SIT WITH MIN SUPPORT AT THE EOB FOR 10 MINS. OVERALL FAIR ACTIVITY TOLERANCE WITH HIGH MOTIVATION. PATIENT WILL BENEFIT FROM SKILLED P.T SERVICE TO FURTHER MAXIMIZE FUNCTIONAL MOBILITY INDEPENDENCE. RECOMMEND RETURN TO SNF WITH CONTINUED SKILLED REHAB. THANK YOU FOR THIS REFERRAL.
--- NOTE | 2018-08-22 16:46 | Cardiology Progress Note ---
Assessment/Plan Status: stable Assessment/Plan Assessment/Plan Assessment/Plan 1. Troponin leak. Repeat troponin is negative. EKG showed sinus rhythm with right bundle-branch block. Echocardiogram EF 80%. The patient does not have any chest pain. 2. Fever of 103 and sepsis. The patient is on IV antibiotic. 3. History of cervical spine injury and quadriparesis. 4. Rhabdomyolysis with CK of more than 800. Subjective Cardiovascular: Reports: no symptoms Respiratory: Reports: no symptoms Gastrointestinal/Abdominal: Reports: no symptoms Genitourinary: Reports: no symptoms Subjective Coverage for [place] Objective Last 24 Hour Vital Signs Date Time Temp Pulse Resp B/P (MAP) Pulse Ox O2 Delivery O2 Flow Rate FiO2 08/22/18 12:00 97.3 49 20 109/72 (84) 95 08/22/18 11:33 50 08/22/18 09:00 Room Air 08/22/18 08:00 58 08/22/18 08:00 97.7 65 20 119/67 (84) 94 08/22/18 06:12 98.0 08/22/18 04:00 51 08/22/18 04:00 97.8 50 20 106/58 (74) 95 08/22/18 00:00 51 08/22/18 00:00 98.0 50 20 150/59 (89) 96 08/21/18 21:05 97.5 08/21/18 21:00 Nasal Cannula 1.0 08/21/18 20:00 98.4 58 20 131/77 (95) 97 08/21/18 20:00 55 General Appearance: no apparent distress, alert EENT: PERRL/EOMI, normal ENT inspection, TMs normal Neck: non-tender, normal alignment, no JVD Rhythm: NSR, PVCs Cardiovascular: normal peripheral pulses, normal rate Respiratory/Chest: chest wall non-tender, lungs clear Abdomen: normal bowel sounds, non tender, soft, no organomegaly Extremities: normal range of motion, non-tender, no calf tenderness Neurologic: osteologist II-XII grossly normal, no motor/sensory deficits Intake and Output 08/21/18 08/22/18 18:59 06:59 Intake Total 985.000 ml 350 ml Output Total 1150 ml 1250 ml Balance -165.000 ml -900 ml Intake Oral 600 ml 240 ml IV Total 385.000 ml 110 ml Output Urine Total 1150 ml 1250 ml Laboratory Tests Test 08/22/18 06:37 White Blood Count 4.5 K/UL (4.8-10.8) L Red Blood Count 4.06 M/UL (4.70-6.10) L Hemoglobin 12.7 G/DL (14.2-18.0) L Hematocrit 36.6 % (42.0-52.0) L Mean Corpuscular Volume 90 FL (80-99) Mean Corpuscular Hemoglobin 31.3 PG (27.0-31.0) H Mean Corpuscular Hemoglobin Concent 34.8 G/DL (32.0-36.0) Red Cell Distribution Width 11.8 % (11.6-14.8) Platelet Count 305 K/UL (150-450) Mean Platelet Volume 4.4 FL (6.5-10.1) L Neutrophils (%) (Auto) 43.1 % (45.0-75.0) L Lymphocytes (%) (Auto) 44.1 % (20.0-45.0) Monocytes (%) (Auto) 8.5 % (1.0-10.0) Eosinophils (%) (Auto) 2.7 % (0.0-3.0) Basophils (%) (Auto) 1.6 % (0.0-2.0) Sodium Level 141 MMOL/L (136-145) Potassium Level 3.3 MMOL/L (3.5-5.1) L Chloride Level 106 MMOL/L (98-107) Carbon Dioxide Level 28 MMOL/L (21-32) Anion Gap 7 mmol/L (5-15) Blood Urea Nitrogen 7 mg/dL (7-18) Creatinine 0.5 MG/DL (0.55-1.30) L Estimat Glomerular Filtration Rate > 60 mL/min (>60) Glucose Level 114 MG/DL (74-106) H Calcium Level 9.1 MG/DL (8.5-10.1) Phosphorus Level 2.7 MG/DL (2.5-4.9) Magnesium Level 1.8 MG/DL (1.8-2.4) Total Bilirubin 0.7 MG/DL (0.2-1.0) Aspartate Amino Transf (AST/SGOT) 32 U/L (15-37) Alanine Aminotransferase (ALT/SGPT) 43 U/L (12-78) Alkaline Phosphatase 35 U/L (46-116) L Total Protein 6.7 G/DL (6.4-8.2) Albumin 2.9 G/DL (3.4-5.0) L Globulin 3.8 g/dL Albumin/Globulin Ratio 0.8 (1.0-2.7) L Anil Jose MD Aug 22, 2018 16:46
--- NOTE | 2018-08-22 19:05 | NUR ---
HAND-OFF: Report given to RADHA Gilmore.
[2018-08-22 20:00] VITALS: BP 112/66
--- NOTE | 2018-08-22 20:16 | NUR ---
NURSE NOTES: recvd pt. Pt is awake and alert AOX4. Pt is on room air with no sign of sob or resp distress. Pt has Right AC 20g c/d/i. Pt is c/o 6/10 pain on bilat shoulders. Will admin pain meds. Condom cath is in place and draining to gravity. fall precautions in place, bed alarm is on, bed in lowest position, will continue with plan of care.
[2018-08-23] VITALS: BP 132/75
[2018-08-23 04:00] VITALS: BP 124/69
[2018-08-23] MEDS: NovoLOG Insulin Flexpen SUBQ SCH ×4 (06:05→20:58)
[2018-08-23] MEDS: Morphine Sulfate 2mg/ml Inj(IV/IM USE ONLY) IVP PRN ×3 (06:06→20:59)
[2018-08-23 06:47] LABS: ALANINE AMINOTRANSFERASE 44 U/L (12-78); ALBUMIN/GLOBULIN RATIO 0.8 (1.0-2.7); ALKALINE PHOSPHATASE 34 U/L (46-116); ANION GAP 9 mmol/L (5-15); ASPARTATE AMINO TRANSFERASE 37 U/L (15-37); BILIRUBIN,TOTAL 0.6 MG/DL (0.2-1.0); BLOOD UREA NITROGEN 6 mg/dL (7-18); CALCIUM 9.2 MG/DL (8.5-10.1); CARBON DIOXIDE 26 MMOL/L (21-32); CHLORIDE 106 MMOL/L (98-107); CREATININE 0.6 MG/DL (0.55-1.30); PHOSPHORUS 2.9 MG/DL (2.5-4.9); POTASSIUM 3.5 MMOL/L (3.5-5.1); SODIUM 141 MMOL/L (136-145)
[2018-08-23 07:22] LABS: BASOPHILS % (AUTO) 2.3 % (0.0-2.0); EOSINOPHILS % (AUTO) 2.7 % (0.0-3.0); HEMATOCRIT 38.4 % (42.0-52.0); HEMOGLOBIN 13.1 G/DL (14.2-18.0); LYMPHOCYTES % (AUTO) 41.1 % (20.0-45.0); MEAN CORPUSCULAR VOLUME 92 FL (80-99); MONOCYTES % (AUTO) 9.4 % (1.0-10.0); NEUTROPHILS % (AUTO) 44.5 % (45.0-75.0); PLATELET COUNT 313 K/UL (150-450); RED BLOOD COUNT 4.18 M/UL (4.70-6.10); RED CELL DISTRIBUTION WIDTH 12.7 % (11.6-14.8); WHITE BLOOD COUNT 4.1 K/UL (4.8-10.8)
--- NOTE | 2018-08-23 07:25 | NUR ---
NURSE NOTES: Report received from Deirdre Hollingsworth RN.Pt awake alert lying quietly in bed ,denies any resp distress,no signs of pain or discomfort S-Franki on the monitor,condom cath in placed,IV site to LFA intact,skin warm and dry,SR up x2 HOB elevated,call ramos within reach at bedside,bed lock in lowest position will continue with plans of care.
[2018-08-23 08:00] VITALS: BP 118/65
[2018-08-23] MEDS: Cefepime HCl 2 GM in D5W 110 ML IV SCH ×2 (09:39→20:56)
[2018-08-23] MEDS: Heparin 5000 units/ml inj SUBQ SCH ×2 (09:42→20:57)
--- NOTE | 2018-08-23 09:54 | Pulmonology Progress Note ---
Assessment/Plan Problems: (1) Sepsis (2) Diabetes mellitus (3) Schizoaffective disorder, bipolar type (4) Major depression (5) Paraplegia Assessment/Plan afebrile now BC negative so far heart rate of 50's get echo review telemetry dvt prophylaxis pt is doing better. Subjective ROS Limited/Unobtainable: No Constitutional: Reports: no symptoms HEENT: Repors: no symptoms Respiratory: Reports: no symptoms Allergies: Coded Allergies: No Known Allergies (Unverified , 08/19/18) Objective Last 24 Hour Vital Signs Date Time Temp Pulse Resp B/P (MAP) Pulse Ox O2 Delivery O2 Flow Rate FiO2 08/23/18 06:36 98.0 08/23/18 04:00 47 08/23/18 04:00 98.0 54 20 124/69 (87) 95 08/23/18 00:00 98.5 51 20 132/75 (94) 98 08/23/18 00:00 48 08/22/18 21:00 Room Air 08/22/18 20:00 98.7 50 20 112/66 (81) 97 08/22/18 20:00 50 08/22/18 16:00 98.1 55 20 108/65 (79) 96 08/22/18 15:47 52 08/22/18 12:00 97.3 49 20 109/72 (84) 95 08/22/18 11:33 50 Intake and Output 08/22/18 08/23/18 19:00 07:00 Intake Total 400 ml Output Total 750 ml Balance -350 ml Intake Oral 100 ml IV Total 300 ml Output Urine Total 750 ml General Appearance: WD/WN HEENT: normocephalic, atraumatic Respiratory/Chest: chest wall non-tender, lungs clear Cardiovascular: normal peripheral pulses, normal rate Abdomen: normal bowel sounds, soft, non tender Genitourinary: normal external genitalia Skin: no rash Laboratory Tests 08/23/18 04:25: White Blood Count 4.1L, Red Blood Count 4.18L, Hemoglobin 13.1L, Hematocrit 38.4L, Mean Corpuscular Volume 92, Mean Corpuscular Hemoglobin 31.3H, Mean Corpuscular Hemoglobin Concent 34.1, Red Cell Distribution Width 12.7, Platelet Count 313, Mean Platelet Volume 4.4L, Neutrophils (%) (Auto) 44.5L, Lymphocytes (%) (Auto) 41.1, Monocytes (%) (Auto) 9.4, Eosinophils (%) (Auto) 2.7, Basophils (%) (Auto) 2.3H, Sodium Level 141, Potassium Level 3.5, Chloride Level 106, Carbon Dioxide Level 26, Anion Gap 9, Blood Urea Nitrogen 6L, Creatinine 0.6, Estimat Glomerular Filtration Rate > 60, Glucose Level 92, Calcium Level 9.2, Phosphorus Level 2.9, Magnesium Level 1.9, Total Bilirubin 0.6, Aspartate Amino Transf (AST/SGOT) 37, Alanine Aminotransferase (ALT/SGPT) 44, Alkaline Phosphatase 34L, Total Protein 6.7, Albumin 3.0L, Globulin 3.7, Albumin/Globulin Ratio 0.8L Current Medications Medications (Trade) Dose Ordered Sig/Alexander Route PRN Reason Start Time Stop Time Status Last Admin Dose Admin Acetaminophen (Tylenol) 650 mg Q4H PRN ORAL fever 08/19/18 15:45 09/18/18 15:44 08/22/18 17:25 Albuterol/ Ipratropium (Albuterol/ Ipratropium) 3 ml Q4H PRN HHN Shortness of Breath 08/19/18 15:45 08/24/18 15:44 Baclofen (Lioresal) 10 mg Q12HR ORAL 08/20/18 21:00 09/19/18 20:59 08/23/18 09:39 Cefepime HCl 2 gm/ Dextrose 110 ml @ 220 mls/hr EVERY 12 HOURS IV 08/19/18 21:00 08/26/18 20:59 08/23/18 09:39 Clonazepam (KlonoPIN) 1 mg Q12HR ORAL 08/20/18 18:00 08/27/18 17:59 08/23/18 09:41 Dextrose (Dextrose 50%) 25 ml Q30M PRN IV Hypoglycemia 08/20/18 11:45 09/19/18 11:41 Dextrose (Dextrose 50%) 50 ml Q30M PRN IV hypoglycemia 08/20/18 11:45 09/19/18 11:44 Divalproex Sodium (Depakote) 250 mg DAILY ORAL 08/20/18 14:00 09/19/18 13:59 08/23/18 09:39 Heparin Sodium (Porcine) (Heparin 5000 units/ml) 5,000 units EVERY 12 HOURS SUBQ 08/19/18 21:00 09/18/18 20:59 08/23/18 09:42 Insulin Aspart (NovoLOG) BEFORE MEALS AND HS SUBQ 08/20/18 16:30 09/19/18 16:29 08/23/18 06:05 Morphine Sulfate (Morphine Sulfate) 2 mg Q4H PRN IVP Moderate Pain (Pain Scale 4-6) 08/19/18 15:45 08/26/18 15:44 08/23/18 06:06 Nitroglycerin (Ntg) 0.4 mg Q5M PRN SL Prn Chest Pain 08/19/18 15:45 09/18/18 15:44 Ondansetron HCl (Zofran) 4 mg Q6H PRN IVP Nausea & Vomiting 08/19/18 15:45 09/18/18 15:44 Polyethylene Glycol (Miralax) 17 gm DAILYPRN PRN ORAL Constipation 08/19/18 15:45 09/18/18 15:44 Temazepam (Restoril) 15 mg HSPRN PRN ORAL Insomnia 08/19/18 15:45 08/26/18 15:44 Josesito Demarco MD Aug 23, 2018 09:54
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
--- NOTE | 2018-08-23 10:19 | NUR ---
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
[2018-08-23 12:00] VITALS: BP 107/60
--- NOTE | 2018-08-23 12:16 | NUR ---
NURSE NOTES: Pt stable,no signs of distress turned and repositioned .
--- NOTE | 2018-08-23 13:10 | General Progress Note ---
Assessment/Plan Problem List: (1) UTI (urinary tract infection) ICD Codes: N39.0 - Urinary tract infection, site not specified SNOMED: 34326605 (2) Paraplegia ICD Codes: G82.20 - Paraplegia, unspecified SNOMED: 46081713 (3) Sepsis ICD Codes: A41.9 - Sepsis, unspecified organism SNOMED: 25746865 (4) Fever ICD Codes: R50.9 - Fever, unspecified SNOMED: 477511718 (5) Diabetes mellitus ICD Codes: E11.9 - Type 2 diabetes mellitus without complications SNOMED: 22413439 Status: stable, progressing Assessment/Plan pt diet abx cbc bmp am dc if cler Subjective Constitutional: Reports: weakness Allergies: Coded Allergies: No Known Allergies (Unverified , 08/19/18) All Systems: reviewed and negative except above Subjective sleepy in bed calm Objective Last 24 Hour Vital Signs Date Time Temp Pulse Resp B/P (MAP) Pulse Ox O2 Delivery O2 Flow Rate FiO2 08/23/18 09:00 Room Air 08/23/18 08:00 54 08/23/18 08:00 98.1 55 20 118/65 (82) 96 08/23/18 06:36 98.0 08/23/18 04:00 47 08/23/18 04:00 98.0 54 20 124/69 (87) 95 08/23/18 00:00 98.5 51 20 132/75 (94) 98 08/23/18 00:00 48 08/22/18 21:00 Room Air 08/22/18 20:00 98.7 50 20 112/66 (81) 97 08/22/18 20:00 50 08/22/18 16:00 98.1 55 20 108/65 (79) 96 08/22/18 15:47 52 Intake and Output 08/22/18 08/23/18 19:00 07:00 Intake Total 400 ml Output Total 750 ml Balance -350 ml Intake Oral 100 ml IV Total 300 ml Output Urine Total 750 ml Laboratory Tests 08/23/18 04:25: White Blood Count 4.1L, Red Blood Count 4.18L, Hemoglobin 13.1L, Hematocrit 38.4L, Mean Corpuscular Volume 92, Mean Corpuscular Hemoglobin 31.3H, Mean Corpuscular Hemoglobin Concent 34.1, Red Cell Distribution Width 12.7, Platelet Count 313, Mean Platelet Volume 4.4L, Neutrophils (%) (Auto) 44.5L, Lymphocytes (%) (Auto) 41.1, Monocytes (%) (Auto) 9.4, Eosinophils (%) (Auto) 2.7, Basophils (%) (Auto) 2.3H, Sodium Level 141, Potassium Level 3.5, Chloride Level 106, Carbon Dioxide Level 26, Anion Gap 9, Blood Urea Nitrogen 6L, Creatinine 0.6, Estimat Glomerular Filtration Rate > 60, Glucose Level 92, Calcium Level 9.2, Phosphorus Level 2.9, Magnesium Level 1.9, Total Bilirubin 0.6, Aspartate Amino Transf (AST/SGOT) 37, Alanine Aminotransferase (ALT/SGPT) 44, Alkaline Phosphatase 34L, Total Protein 6.7, Albumin 3.0L, Globulin 3.7, Albumin/Globulin Ratio 0.8L Height (Feet): 5 Height (Inches): 6.00 Weight (Pounds): 180 General Appearance: lethargic EENT: normal ENT inspection Neck: normal alignment Cardiovascular: normal peripheral pulses, normal rate, regular rhythm Respiratory/Chest: chest wall non-tender, lungs clear, normal breath sounds Abdomen: normal bowel sounds, non tender, soft Extremities: normal inspection Edema: no edema noted Arm (L), no edema noted Arm (R), no edema noted Leg (L), no edema noted Leg (R), no edema noted Pedal (L), no edema noted Pedal (R), no edema noted Generalized Neurologic: motor weakness Skin: normal pigmentation, warm/dry Salty Boucher DO Aug 23, 2018 13:10
--- NOTE | 2018-08-23 13:57 | NUR ---
*-* INSURANCE *-* REVIEWS FAXED TO: DASHA/EHSAN NO [employer] ASSIGNED AT THIS TIME PLEASE FAX THE REVIEW/CLINICAL. P- [phone] F- [phone]
[2018-08-23 16:00] VITALS: BP 95/60
--- NOTE | 2018-08-23 16:11 | Cardiac Electrophysiology PN ---
Assessment/Plan Assessment/Plan 1. Troponin leak. Repeat troponin is negative. EKG showed sinus rhythm with right bundle-branch block. Echocardiogram EF 80%. The patient does not have any chest pain. 2. Fever of 103 and sepsis. The patient is on IV antibiotic. 3. History of cervical spine injury and quadriparesis. 4. Rhabdomyolysis with CK of more than 800. DAMIÁN RN OK to DC from Cardiology perspective Subjective Subjective No events in NAD. No CP or SOB. Objective Last 24 Hour Vital Signs Date Time Temp Pulse Resp B/P (MAP) Pulse Ox O2 Delivery O2 Flow Rate FiO2 08/23/18 12:00 54 08/23/18 12:00 98.1 55 20 107/60 (76) 98 08/23/18 09:00 Room Air 08/23/18 08:00 54 08/23/18 08:00 98.1 55 20 118/65 (82) 96 08/23/18 06:36 98.0 08/23/18 04:00 47 08/23/18 04:00 98.0 54 20 124/69 (87) 95 08/23/18 00:00 98.5 51 20 132/75 (94) 98 08/23/18 00:00 48 08/22/18 21:00 Room Air 08/22/18 20:00 98.7 50 20 112/66 (81) 97 08/22/18 20:00 50 Intake and Output 08/22/18 08/23/18 18:59 06:59 Intake Total 400 ml Output Total 750 ml Balance -350 ml Intake Oral 100 ml IV Total 300 ml Output Urine Total 750 ml Laboratory Tests Test 08/23/18 04:25 White Blood Count 4.1 K/UL (4.8-10.8) L Red Blood Count 4.18 M/UL (4.70-6.10) L Hemoglobin 13.1 G/DL (14.2-18.0) L Hematocrit 38.4 % (42.0-52.0) L Mean Corpuscular Volume 92 FL (80-99) Mean Corpuscular Hemoglobin 31.3 PG (27.0-31.0) H Mean Corpuscular Hemoglobin Concent 34.1 G/DL (32.0-36.0) Red Cell Distribution Width 12.7 % (11.6-14.8) Platelet Count 313 K/UL (150-450) Mean Platelet Volume 4.4 FL (6.5-10.1) L Neutrophils (%) (Auto) 44.5 % (45.0-75.0) L Lymphocytes (%) (Auto) 41.1 % (20.0-45.0) Monocytes (%) (Auto) 9.4 % (1.0-10.0) Eosinophils (%) (Auto) 2.7 % (0.0-3.0) Basophils (%) (Auto) 2.3 % (0.0-2.0) H Sodium Level 141 MMOL/L (136-145) Potassium Level 3.5 MMOL/L (3.5-5.1) Chloride Level 106 MMOL/L (98-107) Carbon Dioxide Level 26 MMOL/L (21-32) Anion Gap 9 mmol/L (5-15) Blood Urea Nitrogen 6 mg/dL (7-18) L Creatinine 0.6 MG/DL (0.55-1.30) Estimat Glomerular Filtration Rate > 60 mL/min (>60) Glucose Level 92 MG/DL (74-106) Calcium Level 9.2 MG/DL (8.5-10.1) Phosphorus Level 2.9 MG/DL (2.5-4.9) Magnesium Level 1.9 MG/DL (1.8-2.4) Total Bilirubin 0.6 MG/DL (0.2-1.0) Aspartate Amino Transf (AST/SGOT) 37 U/L (15-37) Alanine Aminotransferase (ALT/SGPT) 44 U/L (12-78) Alkaline Phosphatase 34 U/L (46-116) L Total Protein 6.7 G/DL (6.4-8.2) Albumin 3.0 G/DL (3.4-5.0) L Globulin 3.7 g/dL Albumin/Globulin Ratio 0.8 (1.0-2.7) L Objective HEAD AND NECK: No JVD. LUNGS: Clear. CARDIOVASCULAR: Regular S1 and S2 with no gallop or murmur. ABDOMEN: Soft and nontender. EXTREMITIES: No pitting edema, however, contracted. Sky Post MD Aug 23, 2018 16:11
--- NOTE | 2018-08-23 16:35 | NUR ---
NURSE NOTES: Dr Post seen pt,cardiac clearance for discharge given.
--- NOTE | 2018-08-23 17:32 | NUR ---
Social Service Note SW faxed referral to Ivan[facility] at [facility] [phone] (p) [phone] (f). Referral received. Pending cardio clearance. CHET to follow up with bed assignment in AM. Charge nurse notified.
--- NOTE | 2018-08-23 19:35 | NUR ---
HAND-OFF: Report given to Eric Ram RN.
[2018-08-23 20:00] VITALS: BP 120/70
--- NOTE | 2018-08-23 20:15 | NUR ---
NURSE NOTES: Received bedside report from RADHA Ram Patient stable,no respiratory distress,no c/o pain noted,SR on rn neonatal icu,tolerated r/air well,bed secured,call light within a reach,will continue to monitor.
--- NOTE | 2018-08-23 21:02 | Cardiology Report ---
APPROVED REPORT EKG Measurement Heart [id number] Normal sinus rhythm Left axis deviation Right bundle branch block and LAFB Abnormal ECG
[2018-08-24] VITALS: BP 130/65
[2018-08-24] MEDS: Morphine Sulfate 2mg/ml Inj(IV/IM USE ONLY) IVP PRN (03:21)
[2018-08-24 04:00] VITALS: BP 110/53
[2018-08-24 05:44] LABS: BASOPHILS % (AUTO) 1.1 % (0.0-2.0); EOSINOPHILS % (AUTO) 2.7 % (0.0-3.0); HEMATOCRIT 35.8 % (42.0-52.0); HEMOGLOBIN 12.7 G/DL (14.2-18.0); LYMPHOCYTES % (AUTO) 38.3 % (20.0-45.0); MEAN CORPUSCULAR VOLUME 90 FL (80-99); MONOCYTES % (AUTO) 6.4 % (1.0-10.0); NEUTROPHILS % (AUTO) 51.5 % (45.0-75.0); PLATELET COUNT 261 K/UL (150-450); WHITE BLOOD COUNT 5.4 K/UL (4.8-10.8)
[2018-08-24] MEDS: NovoLOG Insulin Flexpen SUBQ SCH ×3 (05:51→16:49)
[2018-08-24 06:05] LABS: ANION GAP 7 mmol/L (5-15); BLOOD UREA NITROGEN 8 mg/dL (7-18); CALCIUM 8.9 MG/DL (8.5-10.1); CARBON DIOXIDE 26 MMOL/L (21-32); CHLORIDE 107 MMOL/L (98-107); CREATININE 0.6 MG/DL (0.55-1.30); POTASSIUM 3.6 MMOL/L (3.5-5.1); SODIUM 140 MMOL/L (136-145)
--- NOTE | 2018-08-24 07:05 | NUR ---
NURSE NOTES: transferred patient to Tele,report given to RADHA Rosa.Patient stable,belongings list signed
[2018-08-24] MEDS ORDERED: Nitroglycerin Subl 0.4mg tab SL PRN (07:30)
[2018-08-24] MEDS ORDERED: Morphine Sulfate 2mg/ml Inj(IV/IM USE ONLY) IVP PRN (07:45)
[2018-08-24] MEDS ORDERED: Albuterol/Ipratropium 3ml neb HHN PRN (07:45)
[2018-08-24 08:00] VITALS: BP 127/73
--- NOTE | 2018-08-24 08:14 | NUR ---
NURSE NOTES: Rcvd report from nessa, pt in bed in low position, call light at bedside, pt Ox4 calm and cooperative, bed alarm on as the pt is unsteady, 2 rails up, pt makes needs known, HOB in semi fowlers, condom catheter on and draining, pt states he has a headache pain level 4 and wants tylenol, no s/s of distress or sob noted.
[2018-08-24] MEDS ORDERED: Heparin 5000 units/ml inj SUBQ SCH (09:00)
[2018-08-24] MEDS ORDERED: Cefepime HCl 2 GM in D5W 110 ML IV SCH (09:00)
[2018-08-24 12:00] VITALS: BP 118/66
--- NOTE | 2018-08-24 12:53 | Pulmonology Progress Note ---
Assessment/Plan Problems: (1) Sepsis (2) Diabetes mellitus (3) Schizoaffective disorder, bipolar type (4) Major depression (5) Paraplegia Assessment/Plan afebrile now BC negative so far heart rate of 50's get echo review telemetry dvt prophylaxis pt is doing better. dc home Subjective ROS Limited/Unobtainable: No HEENT: Repors: no symptoms Respiratory: Reports: no symptoms Allergies: Coded Allergies: No Known Allergies (Unverified , 08/19/18) Objective Last 24 Hour Vital Signs Date Time Temp Pulse Resp B/P (MAP) Pulse Ox O2 Delivery O2 Flow Rate FiO2 08/24/18 12:00 98.1 50 20 118/66 (83) 97 08/24/18 11:09 98.0 08/24/18 08:40 Room Air 08/24/18 08:00 98.0 54 19 127/73 (91) 96 08/24/18 07:36 48 08/24/18 04:17 52 08/24/18 04:00 98.7 50 20 110/53 (72) 97 08/24/18 00:00 98.1 54 20 130/65 (86) 94 08/23/18 23:48 52 08/23/18 21:00 Room Air 08/23/18 20:00 98.9 58 20 120/70 (87) 94 08/23/18 19:10 55 08/23/18 16:00 56 08/23/18 16:00 97.9 53 20 95/60 (72) 97 Intake and Output 08/23/18 08/24/18 19:00 07:00 Intake Total 600 ml 470 ml Output Total 1000 ml 600 ml Balance -400 ml -130 ml Intake Oral 600 ml 360 ml IV Total 110 ml Output Urine Total 1000 ml 600 ml General Appearance: WD/WN HEENT: normocephalic, atraumatic Respiratory/Chest: chest wall non-tender, lungs clear Cardiovascular: normal peripheral pulses, normal rate Abdomen: normal bowel sounds, soft, non tender Microbiology Date/Time Source Procedure Growth Status 08/22/18 14:50 External Cath Urine Culture - Preliminary Yeast Species Resulted Laboratory Tests 08/24/18 04:39: White Blood Count 5.4, Red Blood Count 4.00L, Hemoglobin 12.7L, Hematocrit 35.8L , Mean Corpuscular Volume 90, Mean Corpuscular Hemoglobin 31.8H, Mean Corpuscular Hemoglobin Concent 35.5, Red Cell Distribution Width 12.0, Platelet Count 261, Mean Platelet Volume 4.6L, Neutrophils (%) (Auto) 51.5, Lymphocytes ( %) (Auto) 38.3, Monocytes (%) (Auto) 6.4, Eosinophils (%) (Auto) 2.7, Basophils (%) (Auto) 1.1, Sodium Level 140, Potassium Level 3.6, Chloride Level 107, Carbon Dioxide Level 26, Anion Gap 7, Blood Urea Nitrogen 8, Creatinine 0.6, Estimat Glomerular Filtration Rate > 60, Glucose Level 127H, Calcium Level 8.9 Current Medications Medications (Trade) Dose Ordered Sig/Alexander Route PRN Reason Start Time Stop Time Status Last Admin Dose Admin Acetaminophen (Tylenol) 650 mg Q4H PRN ORAL Mild Pain/Temp > 100.5 08/24/18 10:00 09/23/18 09:59 Albuterol/ Ipratropium (Albuterol/ Ipratropium) 3 ml Q4H PRN HHN Shortness of Breath 08/24/18 07:45 08/24/18 15:44 Baclofen (Lioresal) 10 mg Q12HR ORAL 08/24/18 09:00 09/19/18 20:59 08/24/18 09:48 Cefepime HCl 2 gm/ Dextrose 110 ml @ 220 mls/hr EVERY 12 HOURS IV 08/24/18 09:00 08/26/18 20:59 08/24/18 09:52 Clonazepam (KlonoPIN) 1 mg Q12HR ORAL 08/24/18 09:00 08/27/18 17:59 08/24/18 09:49 Dextrose (Dextrose 50%) 25 ml Q30M PRN IV Hypoglycemia 08/24/18 07:45 09/19/18 11:41 Dextrose (Dextrose 50%) 50 ml Q30M PRN IV hypoglycemia 08/24/18 07:45 09/19/18 11:44 Divalproex Sodium (Depakote) 250 mg DAILY ORAL 08/24/18 09:00 09/19/18 13:59 08/24/18 09:49 Heparin Sodium (Porcine) (Heparin 5000 units/ml) 5,000 units EVERY 12 HOURS SUBQ 08/24/18 09:00 09/18/18 20:59 08/24/18 09:59 Insulin Aspart (NovoLOG) BEFORE MEALS AND HS SUBQ 08/24/18 11:30 09/19/18 16:29 Morphine Sulfate (Morphine Sulfate) 2 mg Q4H PRN IVP Moderate Pain (Pain Scale 4-6) 08/24/18 07:45 08/26/18 15:44 08/24/18 10:39 Nitroglycerin (Ntg) 0.4 mg Q5M PRN SL Prn Chest Pain 08/24/18 07:30 09/18/18 15:44 Ondansetron HCl (Zofran) 4 mg Q6H PRN IVP Nausea & Vomiting 08/24/18 09:45 09/18/18 15:44 Polyethylene Glycol (Miralax) 17 gm DAILYPRN PRN ORAL Constipation 08/24/18 15:45 09/18/18 15:44 Temazepam (Restoril) 15 mg HSPRN PRN ORAL Insomnia 08/24/18 15:45 08/26/18 15:44 Josesito Demarco MD Aug 24, 2018 12:52
--- NOTE | 2018-08-24 13:33 | General Progress Note ---
Assessment/Plan Problem List: (1) UTI (urinary tract infection) ICD Codes: N39.0 - Urinary tract infection, site not specified SNOMED: 20106954 (2) Paraplegia ICD Codes: G82.20 - Paraplegia, unspecified SNOMED: 32450368 (3) Sepsis ICD Codes: A41.9 - Sepsis, unspecified organism SNOMED: 92735342 (4) Fever ICD Codes: R50.9 - Fever, unspecified SNOMED: 820943445 (5) Diabetes mellitus ICD Codes: E11.9 - Type 2 diabetes mellitus without complications SNOMED: 44579790 Status: stable, progressing Assessment/Plan pt diet abx dc if clear Subjective Constitutional: Reports: weakness Allergies: Coded Allergies: No Known Allergies (Unverified , 08/19/18) All Systems: reviewed and negative except above Subjective sleepy in bed calm Objective Last 24 Hour Vital Signs Date Time Temp Pulse Resp B/P (MAP) Pulse Ox O2 Delivery O2 Flow Rate FiO2 08/24/18 12:00 98.1 50 20 118/66 (83) 97 08/24/18 11:09 98.0 08/24/18 08:40 Room Air 08/24/18 08:00 98.0 54 19 127/73 (91) 96 08/24/18 07:36 48 08/24/18 04:17 52 08/24/18 04:00 98.7 50 20 110/53 (72) 97 08/24/18 00:00 98.1 54 20 130/65 (86) 94 08/23/18 23:48 52 08/23/18 21:00 Room Air 08/23/18 20:00 98.9 58 20 120/70 (87) 94 08/23/18 19:10 55 08/23/18 16:00 56 08/23/18 16:00 97.9 53 20 95/60 (72) 97 Intake and Output 08/23/18 08/24/18 19:00 07:00 Intake Total 600 ml 470 ml Output Total 1000 ml 600 ml Balance -400 ml -130 ml Intake Oral 600 ml 360 ml IV Total 110 ml Output Urine Total 1000 ml 600 ml Laboratory Tests 08/24/18 04:39: White Blood Count 5.4, Red Blood Count 4.00L, Hemoglobin 12.7L, Hematocrit 35.8L , Mean Corpuscular Volume 90, Mean Corpuscular Hemoglobin 31.8H, Mean Corpuscular Hemoglobin Concent 35.5, Red Cell Distribution Width 12.0, Platelet Count 261, Mean Platelet Volume 4.6L, Neutrophils (%) (Auto) 51.5, Lymphocytes ( %) (Auto) 38.3, Monocytes (%) (Auto) 6.4, Eosinophils (%) (Auto) 2.7, Basophils (%) (Auto) 1.1, Sodium Level 140, Potassium Level 3.6, Chloride Level 107, Carbon Dioxide Level 26, Anion Gap 7, Blood Urea Nitrogen 8, Creatinine 0.6, Estimat Glomerular Filtration Rate > 60, Glucose Level 127H, Calcium Level 8.9 Height (Feet): 5 Height (Inches): 6.00 Weight (Pounds): 180 General Appearance: lethargic EENT: normal ENT inspection Neck: normal alignment Cardiovascular: normal peripheral pulses, normal rate, regular rhythm Respiratory/Chest: chest wall non-tender, lungs clear, normal breath sounds Abdomen: normal bowel sounds, non tender, soft Extremities: normal inspection Edema: no edema noted Arm (L), no edema noted Arm (R), no edema noted Leg (L), no edema noted Leg (R), no edema noted Pedal (L), no edema noted Pedal (R), no edema noted Generalized Neurologic: responsive, motor weakness Skin: normal pigmentation, warm/dry Salty Boucher DO Aug 24, 2018 13:33
--- NOTE | 2018-08-24 13:43 | Cardiac Electrophysiology PN ---
Assessment/Plan Assessment/Plan 1. Troponin leak. Repeat troponin is negative. EKG showed sinus rhythm with right bundle-branch block. Echocardiogram EF 80%. The patient does not have any chest pain. 2. Fever of 103 and sepsis. Resolved on IV antibiotic. 3. History of cervical spine injury and quadriparesis. 4. Rhabdomyolysis with CK of more than 800. DAMIÁN RN Subjective Subjective No events in NAD. No CP or SOB.In SR on tele Objective Last 24 Hour Vital Signs Date Time Temp Pulse Resp B/P (MAP) Pulse Ox O2 Delivery O2 Flow Rate FiO2 08/24/18 12:08 47 08/24/18 12:00 98.1 50 20 118/66 (83) 97 08/24/18 11:09 98.0 08/24/18 08:40 Room Air 08/24/18 08:00 98.0 54 19 127/73 (91) 96 08/24/18 07:36 48 08/24/18 04:17 52 08/24/18 04:00 98.7 50 20 110/53 (72) 97 08/24/18 00:00 98.1 54 20 130/65 (86) 94 08/23/18 23:48 52 08/23/18 21:00 Room Air 08/23/18 20:00 98.9 58 20 120/70 (87) 94 08/23/18 19:10 55 08/23/18 16:00 56 08/23/18 16:00 97.9 53 20 95/60 (72) 97 Intake and Output 08/23/18 08/24/18 19:00 07:00 Intake Total 600 ml 470 ml Output Total 1000 ml 600 ml Balance -400 ml -130 ml Intake Oral 600 ml 360 ml IV Total 110 ml Output Urine Total 1000 ml 600 ml Laboratory Tests Test 08/24/18 04:39 White Blood Count 5.4 K/UL (4.8-10.8) Red Blood Count 4.00 M/UL (4.70-6.10) L Hemoglobin 12.7 G/DL (14.2-18.0) L Hematocrit 35.8 % (42.0-52.0) L Mean Corpuscular Volume 90 FL (80-99) Mean Corpuscular Hemoglobin 31.8 PG (27.0-31.0) H Mean Corpuscular Hemoglobin Concent 35.5 G/DL (32.0-36.0) Red Cell Distribution Width 12.0 % (11.6-14.8) Platelet Count 261 K/UL (150-450) Mean Platelet Volume 4.6 FL (6.5-10.1) L Neutrophils (%) (Auto) 51.5 % (45.0-75.0) Lymphocytes (%) (Auto) 38.3 % (20.0-45.0) Monocytes (%) (Auto) 6.4 % (1.0-10.0) Eosinophils (%) (Auto) 2.7 % (0.0-3.0) Basophils (%) (Auto) 1.1 % (0.0-2.0) Sodium Level 140 MMOL/L (136-145) Potassium Level 3.6 MMOL/L (3.5-5.1) Chloride Level 107 MMOL/L (98-107) Carbon Dioxide Level 26 MMOL/L (21-32) Anion Gap 7 mmol/L (5-15) Blood Urea Nitrogen 8 mg/dL (7-18) Creatinine 0.6 MG/DL (0.55-1.30) Estimat Glomerular Filtration Rate > 60 mL/min (>60) Glucose Level 127 MG/DL (74-106) H Calcium Level 8.9 MG/DL (8.5-10.1) Microbiology Date/Time Source Procedure Growth Status 08/22/18 14:50 External Cath Urine Culture - Preliminary Yeast Species Resulted Objective HEAD AND NECK: No JVD. LUNGS: Clear. CARDIOVASCULAR: Regular S1 and S2 with no gallop or murmur. ABDOMEN: Soft and nontender. EXTREMITIES: No pitting edema, however, contracted. Sky Post MD Aug 24, 2018 13:43
--- NOTE | 2018-08-24 15:29 | NUR ---
FROG OR OYSTER FARMWORKER NOTES PT ACCEPTED BACK TO [facility] ROOM 29 BED A. NURSE TO CALL REPORT TO [phone]. [facility] TO TRANSPORT PT.
--- NOTE | 2018-08-24 15:41 | NUR ---
*-* DISCHARGE PLANNED *-* PATIENT IS DISCHARGED TO: [facility] ROOM# 29-A SKILLED T:[phone] FOR NURSE TO NURSE REPORT [facility] HAS BEEN ARANGED FOR PICK U AT 1620 S/[address] JED [id number] *-* LVM FOR [facility] KNOW OF PTS D/C *-*
[2018-08-24] MEDS ORDERED: Miralax 17gm pkt ORAL PRN (15:45)
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
[2018-08-24 16:00] VITALS: BP 113/72
--- NOTE | 2018-08-24 16:16 | NUR ---
*-* INSURANCE *-* REVIEWS FAXED TO: DASHA/EHSAN NO CAUSTIC PUMP OPERATOR ASSIGNED AT THIS TIME PLEASE FAX THE REVIEW/CLINICAL. P- [phone] F- [phone]
--- NOTE | 2018-08-24 17:07 | NUR ---
NURSE NOTES: Pt cleared to go back to [facility], discharge order in, med recon and aftercare plan printed, IV removed along with ID band, gave report to Adri Nurse at facility, pt will go with condom catheter on, pt family called and pt made aware. Vitals WNL.
--- NOTE | 2018-08-24 17:47 | NUR ---
NURSE NOTES: customer experience consultant here to roll picker the pt
[2018-08-24] MEDS ORDERED: NS 500ML ONE (18:08)
[2018-08-24] MEDS ORDERED: NS 275ml ONE (18:08)
[2018-08-24] MEDS ORDERED: Tubing IV Secondary IV ONE (18:08)
--- NOTE | 2018-08-24 18:21 | NUR ---
NURSE NOTES: pt left the unit. Ox4 calm and cooperative
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
== END 2018-08-24 18:09 | DRG 720 ==
LOC: EDBD 11:48 → EMR 12:30 → EDBEDREQ 15:16 → 2W 19:45 → 2E 08-20 23:54 → 2W 08-21 01:04 → 2E 08-24 07:38
DX: A41.9 Sepsis, unspecified organism (principal); G82.20 Paraplegia, unspecified; F25.0 Schizoaffective disorder, bipolar type; E11.9 Type 2 diabetes mellitus without complications; N39.0 Urinary tract infection, site not specified; T14.90XS Injury, unspecified, sequela; V89.2XXS Person injured in unspecified motor-vehicle accident, traffic, sequela; F32.9 Major depressive disorder, single episode, unspecified; I45.10 Unspecified right bundle-branch block
CPT/HCPCS: 36415; 71045; 80048; 80053; 80202; 81003; 82248; 82550; 82553; 82962; 83605; 83735; 83880; 84100; 84484; 85025; 86710; 87040; 87086; 93005; 93306; 96365; 96366; 96368; 99285; J1815